=== PATIENT | female | born 1980 | race Caucasian/White ===

== ENCOUNTER 2017-03-30 09:47 | Inpatient (IN) | payer OTHER ==
[2017-03-30] MEDS ORDERED: Sodium Chloride 0.9% 10 ML Syringe FLUSH PRN (11:23)
[2017-03-30] MEDS ORDERED: Oxytocin/Lactated Ringers 10 UNIT/1,000 ML BAG IV SCH ×3 (11:30)
--- NOTE | 2017-03-30 11:43 | PCM.LDHP ---
<Marilyn Tesfaye - Last Filed: 03/30/17 11:38> L&D History of Present Illness - General Date of Service: 03/30/17 Admit Problem/Dx: Admission Diagnosis/Problem Admission Diagnosis/Problem Source of Information: Patient History Limitations: Reports: No Limitations - History of Present Illness Introduction:: Patient is a ([birth year]) who presents to the labor and delivery unit with spontaneous ruptured membranes. The patient believes her water broke at 0800 this morning. 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) : 5 Para: 0 LMP (Approximate): Musculoskeletal History: Reports: Fracture (Right Ankle) Neurological History: Reports: None Endocrine/Metabolic History: Reports: Diabetes, Gestational (Diet controlled) Hematologic History: Reports: None - Infectious Disease History Infectious Disease History: Reports: Chicken Pox (In childhood per record) - Past Surgical History Head Surgeries/Procedures: Reports: None HEENT Surgical History: Reports: Oral Surgery ([place] teeth (age 16)) Cardiovascular Surgical History: Reports: None Respiratory Surgical History: Reports: None GI Surgical History: Reports: None Female Surgical History: Reports: None Other Musculoskeletal Surgeries/Procedures:: Ankle fracture repair Social & Family History - Family History Other Cardiac Family History: Heart Disease- Maternal Grandmother and Maternal Grandfather Hematologic: Reports: Anemia (Patient's cousin is a carrier for RAD51C ([place] Anemia)) Oncologic: Reports: Colon (Father) Other Oncologic Family History: Mother-ureter cancer - Tobacco Use Smoking Status *Q: Never Smoker Tobacco Use Within Last Twelve Months: No - Alcohol Use Alcohol Use History: Yes Alcohol Use Frequency: Socially H&P Review of Systems - Review of Systems: Review Of Systems: ROS reveals no pertinent complaints other than HPI. L&D Exam - Exam Exam: See Below - Vital Signs Weight: 115.394 kg - OB Specific Contraction Intensity: Mild Movement: Active Heart Tones: Present Heart Tones per Min: 136 Presentation: Unable to Assess - Exam General: Alert, Oriented, Cooperative HEENT: Conjunctiva Clear, EACs Clear, EOMI, Hearing Intact, Mucosa Moist & [place] , Nares Patent, Normal Nasal Septum Neck: Supple, Trachea Midline Lungs: Clear to Auscultation, Normal Respiratory Effort Cardiovascular: Regular Rate, Regular Rhythm Rectal Exam: Deferred Genitourinary: Deferred Back Exam: Normal Inspection, Full Range of Motion Extremities: Normal Inspection, Normal Range of Motion, Non-Tender, Normal Capillary Refill, Pedal Edema Skin: Warm, Dry, Intact Psychiatric: Alert, Normal Affect, Normal Mood - Patient Data Lab Results Last 24 hrs: Laboratory Results - last 24 hr 03/30/17 Range/Units 10:33 Membrane Rupture Positive H Assessment/Plan Comment:: Patient is a 36 yo 0-0-4-0 who presents to L & D with spontaneous ruptured membranes. The patient is 39 3/7 weeks with and CAMILO of 04/03/17. She was scheduled to be induced on 03/31/17. Her water broke at 0800 this morning. She is GBS-, A-, antibody negative. She has gestational diabetes that is managed by diet. She had a normal course otherwise. She is no distress, reports movement and is having no contractions or pain. She has some pedal edema +1. Rest of physical exam is unremarkable. The patient has requested and epidural be placed Plan: Continue monitoring Monitor maternal blood sugars <Joaquín Alcocer - Last Filed: 03/31/17 05:38> L&D History of Present Illness - General Admit Problem/Dx: Patient Status Order with Admit Dx/Problem 03/30/17 11:23 Patient Status [ADT] Routine Admission Diagnosis/Problem Admission Diagnosis/Problem L&D Exam - Vital Signs Vital Signs: Last Vital Signs Temp 36.3 C 03/30/17 19:39 Pulse 83 03/30/17 19:39 Resp 20 03/30/17 19:39 BP 116/76 03/30/17 19:39 Pulse Ox 98 03/30/17 19:39 - Patient Data Lab Results Last 24 hrs: Laboratory Results - last 24 hr 03/30/17 03/30/17 03/30/17 Range/Units 10:33 12:40 12:40 WBC 11.84 H (3.98-10.04) K/mm3 RBC 4.04 (3.98-5.22) M/mm3 Hgb 12.5 (11.2-15.7) gm/L Hct 36.5 (34.1-44.9) % MCV 90.3 (79.4-94.8) fl MCH 30.9 (25.6-32.2) pg MCHC 34.2 (32.2-35.5) g/dl RDW Std Deviation 43.8 (36.4-46.3) fL Plt Count 87 L (182-369) K/mm3 MPV 10.9 (9.4-12.3) fl Neut % (Auto) 81.8 H (34.0-71.1) % Lymph % (Auto) 12.4 L (19.3-51.7) % [place] % (Auto) 5.1 (4.7-12.5) % Eos % (Auto) 0.3 L (0.7-5.8) Baso % (Auto) 0.2 (0.1-1.2) % Neut # (Auto) 9.69 H (1.56-6.13) K/mm3 Lymph # (Auto) 1.47 (1.18-3.74) K/mm3 [place] # (Auto) 0.60 H (0.24-0.36) K/mm3 Eos # (Auto) 0.04 (0.04-0.36) K/mm3 Baso # (Auto) 0.02 (0.01-0.08) K/mm3 Manual Slide Review Abnormal smear Glucose 70 L (74-106) mg/dL Membrane Rupture Positive H 03/30/17 Range/Units 16:00 WBC (3.98-10.04) K/mm3 RBC (3.98-5.22) M/mm3 Hgb (11.2-15.7) gm/L Hct (34.1-44.9) % MCV (79.4-94.8) fl MCH (25.6-32.2) pg MCHC (32.2-35.5) g/dl RDW Std Deviation (36.4-46.3) fL Plt Count 172 L (182-369) K/mm3 MPV (9.4-12.3) fl Neut % (Auto) (34.0-71.1) % Lymph % (Auto) (19.3-51.7) % [place] % (Auto) (4.7-12.5) % Eos % (Auto) (0.7-5.8) Baso % (Auto) (0.1-1.2) % Neut # (Auto) (1.56-6.13) K/mm3 Lymph # (Auto) (1.18-3.74) K/mm3 [place] # (Auto) (0.24-0.36) K/mm3 Eos # (Auto) (0.04-0.36) K/mm3 Baso # (Auto) (0.01-0.08) K/mm3 Manual Slide Review Glucose (74-106) mg/dL Membrane Rupture Result Diagrams: 03/30/17 16:00 Problem List Initiated/Reviewed/Updated: Yes Orders Last 24hrs: Active Orders 24 hr Category Date Time Status Patient Status [ADT] Routine ADT 03/30/17 11:23 Active Antiembolic Devices [RC] Care 03/30/17 21:21 Active Communication Order [RC] ASDIRECTED Care 03/30/17 11:23 Active Insert Gupta Catheter [Insert Urinary Catheter] [OM.PC] Care 03/30/17 21:30 Ordered Q24H Notify Provider [RC] ASDIRECTED Care 03/30/17 18:54 Active Notify Provider [RC] PRN Care 03/30/17 11:23 Active Peripheral IV Care [RC] Care 03/30/17 11:24 Active Urinary Catheter Assessment [RC] Care 03/30/17 21:26 Active Vital Signs [RC] Care 03/30/17 11:23 Active Regular Diet [DIET] Diet 03/30/17 Lunch Active Bupivacaine/fentaNYL/NS [fentaNYL/Bupivacaine/NS 2 MCG- Med 03/30/17 19:00 Active 0.125% 100 ML] 100 ml EPIDUR ASDIRECTED Lactated Ringers [Ringers, Lactated] 1,000 ml Med 03/30/17 11:30 Active IV ASDIRECTED Ondansetron [Zofran] Med 03/30/17 18:54 Active 4 mg IVPUSH ONETIME PRN Oxytocin [Pitocin] 20 unit Med 03/30/17 21:45 Active Lactated Ringers [Ringers, Lactated] 1,000 ml IV TITRATE Oxytocin/Lactated Ringers [Pitocin in LR 10 Units/1,000 Med 03/30/17 11:30 Active ML] 10 unit in 1,000 ml IV .CONTINUOUS Oxytocin/Lactated Ringers [Pitocin in LR 10 Units/1,000 Med 03/30/17 11:30 Active ML] 10 unit in 1,000 ml IV .CONTINUOUS Oxytocin/Lactated Ringers [Pitocin in LR 10 Units/1,000 Med 03/30/17 11:30 Active ML] 10 unit in 1,000 ml IV TITRATE Sodium Chloride 0.9% [Saline Flush] Med 03/30/17 11:23 Active 10 ml FLUSH ASDIRECTED PRN ePHEDrine [ePHEDrine Sulfate] Med 03/30/17 18:54 Active 5 mg IVPUSH ASDIRECTED PRN fentaNYL [Sublimaze] Med 03/30/17 18:54 Active 100 mcg EPIDUR Q3H PRN Electronic Heart Tones Ext w TOCO [WOMSER] Oth 03/30/17 11:23 Ordered Routine Electronic Heart Tones Internal [WOMSER] Per Unit Oth 03/30/17 11:23 Ordered Routine Peripheral IV Insertion Adult [OM.PC] Routine Oth 03/30/17 11:23 Ordered SCD [Sequential Compression Device] [OM.PC] Routine Oth 03/30/17 21:21 Ordered Resuscitation Status Routine Resus Stat 03/30/17 11:23 Ordered Medication Orders Ephedrine Sulfate (Ephedrine Sulfate) 5 mg IVPUSH ASDIRECTED PRN PRN Reason: Hypotension Last Admin: 03/30/17 22:33 Dose: 5 mg Admin: 03/30/17 22:11 Dose: 5 mg Fentanyl (Sublimaze) 100 mcg EPIDUR Q3H PRN PRN Reason: Pain Last Admin: 03/30/17 19:40 Dose: 100 mcg Fentanyl/Bupivacaine HCl (Fentanyl/Bupivacaine/Ns 2 Mcg-0.125% 100 Ml) 100 ml EPIDUR ASDIRECTED BELÉN Last Admin: 03/31/17 02:54 Dose: 100 ml Admin: 03/30/17 19:40 Dose: 100 ml Lactated Ringer's (Ringers, Lactated) 1,000 mls @ 100 mls/hr IV ASDIRECTED BELÉN Last Admin: 03/30/17 23:03 Dose: 125 mls/hr Infusion: 03/30/17 23:03 Dose: 125 mls/hr Admin: 03/30/17 21:10 Dose: 125 mls/hr Infusion: 03/30/17 20:35 Dose: 999 mls/hr Admin: 03/30/17 19:34 Dose: 999 mls/hr Infusion: 03/30/17 19:34 Dose: 100 mls/hr Admin: 03/30/17 14:16 Dose: 100 mls/hr Oxytocin/Lactated Ringer's (Pitocin In Lr 10 Units/1,000 Ml) 10 unit in 1,000 mls @ 12 mls/hr IV TITRATE BELÉN; 2 MUNITS/MIN PRN Reason: Protocol Last Titration: 03/30/17 22:32 Dose: 20 munits/min, 120 mls/hr Titration: 03/30/17 21:47 Dose: 18 munits/min, 108 mls/hr Titration: 03/30/17 21:10 Dose: 16 munits/min, 96 mls/hr Titration: 03/30/17 20:02 Dose: 14 munits/min, 84 mls/hr Titration: 03/30/17 19:34 Dose: 0 munits/min, 0 mls/hr Titration: 03/30/17 18:10 Dose: 14 munits/min, 84 mls/hr Titration: 03/30/17 17:25 Dose: 12 munits/min, 72 mls/hr Titration: 03/30/17 16:43 Dose: 10 munits/min, 60 mls/hr Titration: 03/30/17 16:12 Dose: 8 munits/min, 48 mls/hr Titration: 03/30/17 15:40 Dose: 6 munits/min, 36 mls/hr Titration: 03/30/17 14:50 Dose: 4 munits/min, 24 mls/hr Admin: 03/30/17 14:18 Dose: 2 munits/min, 12 mls/hr Oxytocin/Lactated Ringer's (Pitocin In Lr 10 Units/1,000 Ml) 10 unit in 1,000 mls @ 100 mls/hr IV .CONTINUOUS BELÉN Oxytocin/Lactated Ringer's (Pitocin In Lr 10 Units/1,000 Ml) 10 unit in 1,000 mls @ 500 mls/hr IV .CONTINUOUS BELÉN Oxytocin 20 unit/ Lactated (Ringer's) 1,002 mls @ 60.12 mls/hr IV TITRATE BELÉN; 20 MUNITS/MIN PRN Reason: Protocol Last Admin: 03/31/17 02:21 Dose: 20 munits/min, 60.12 mls/hr Ondansetron HCl (Zofran) 4 mg IVPUSH ONETIME PRN PRN Reason: Nausea/Vomiting Sodium Chloride (Saline Flush) 10 ml FLUSH ASDIRECTED PRN PRN Reason: Keep Vein Open Assessment/Plan Comment:: Plan: 1. Anticipate delivery 2. Pitocin augmentation if not laboring adequately by 6-8 hours post SROM 3. CBC 4. Pt desires epidural 5. Rh negative. Rh immunoglobulin as indicated pp. 6. Support nursing decision
[2017-03-30] MEDS ORDERED: Bupivacaine 0.25% 10 ML SDV ONE (12:00)
[2017-03-30] MEDS: Lactated Ringers 1,000 ML IV SCH ×4 (14:16→23:03)
[2017-03-30] MEDS ORDERED: fentaNYL 100 MCG/2 ML SDV EPIDUR PRN (18:54)
[2017-03-30] MEDS ORDERED: Ondansetron 4 MG/2 ML SDV IVPUSH PRN (18:54)
--- NOTE | 2017-03-30 18:56 | PCM.PREANE ---
Preanesthetic Assessment - Anesthesia/Transfusion/Family Hx Anesthesia History: Prior Anesthesia Without Reaction Family History of Anesthesia Reaction: No Transfusion History: No Prior Transfusion(s) Intubation History: Unknown - Review of Systems General: No Symptoms Pulmonary: No Symptoms Cardiovascular: No Symptoms Gastrointestinal: Diarrhea Neurological: No Symptoms Other: Reports: None, Diabetes (gestational DM diet controlled) - Physical Assessment NPO Status Date: 03/30/17 NPO Status Time: 13:00 Pulse: 83 O2 Sat by Pulse Oximetry: 98 Respiratory Rate: 20 Blood Pressure: 116/76 Temperature: 36.3 C Vital Signs: Last Vital Signs Temp 36.3 C 03/30/17 10:33 Pulse 83 03/30/17 10:33 Resp 20 03/30/17 10:33 BP 116/76 03/30/17 10:33 Pulse Ox 98 03/30/17 10:33 Height: 1.68 m Weight: 115.394 kg ASA Class: 2 Mental Status: Alert & Oriented x3 Airway Class: Mallampati = 2 Dentition: Reports: Normal Dentition, Caries Thyro-Mental Finger Breadths: 3 Mouth Opening Finger Breadths: 3 ROM/Head Extension: Full Lungs: Clear to Auscultation, Normal Respiratory Effort Cardiovascular: Regular Rate, Regular Rhythm, No Murmurs - Lab Values: Laboratory Last Values WBC 11.84 K/mm3 (3.98-10.04) H 03/30/17 12:40 RBC 4.04 M/mm3 (3.98-5.22) 03/30/17 12:40 Hgb 12.5 gm/L (11.2-15.7) 03/30/17 12:40 Hct 36.5 % (34.1-44.9) 03/30/17 12:40 MCV 90.3 fl (79.4-94.8) 03/30/17 12:40 MCH 30.9 pg (25.6-32.2) 03/30/17 12:40 MCHC 34.2 g/dl (32.2-35.5) 03/30/17 12:40 RDW Std Deviation 43.8 fL (36.4-46.3) 03/30/17 12:40 Plt Count 172 K/mm3 (182-369) L 03/30/17 16:00 MPV 10.9 fl (9.4-12.3) 03/30/17 12:40 Neut % (Auto) 81.8 % (34.0-71.1) H 03/30/17 12:40 Lymph % (Auto) 12.4 % (19.3-51.7) L 03/30/17 12:40 [place] % (Auto) 5.1 % (4.7-12.5) 03/30/17 12:40 Eos % (Auto) 0.3 (0.7-5.8) L 03/30/17 12:40 Baso % (Auto) 0.2 % (0.1-1.2) 03/30/17 12:40 Neut # (Auto) 9.69 K/mm3 (1.56-6.13) H 03/30/17 12:40 Lymph # (Auto) 1.47 K/mm3 (1.18-3.74) 03/30/17 12:40 [place] # (Auto) 0.60 K/mm3 (0.24-0.36) H 03/30/17 12:40 Eos # (Auto) 0.04 K/mm3 (0.04-0.36) 03/30/17 12:40 Baso # (Auto) 0.02 K/mm3 (0.01-0.08) 03/30/17 12:40 Manual Slide Review Abnormal smear 03/30/17 12:40 Glucose 70 mg/dL (74-106) L 03/30/17 12:40 Membrane Rupture Positive H 03/30/17 10:33 Above labs reviewed and noted. - Allergies Allergies/Adverse Reactions: Allergies Allergy/AdvReac Type Severity Reaction Status Date / Time No Known Allergies Allergy Verified 03/30/17 10:33 - Anesthesia Plan Pre-Op Medication Ordered: None - Acknowledgements Anesthesia Type Planned: Epidural Pt an Appropriate Candidate for the Planned Anesthesia: Yes Alternatives and Risks of Anesthesia Discussed w Pt/Guardian: Yes Pt/Guardian Understands and Agrees with Anesthesia Plan: Yes PreAnesthesia Questionnaire HEENT History: Reports: None Cardiovascular History: Reports: None Respiratory History: Reports: None Gastrointestinal History: Reports: None Genitourinary History: Reports: None 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: , 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) Musculoskeletal History: Reports: Fracture (Right Ankle) Neurological History: Reports: None Endocrine/Metabolic History: Reports: Diabetes, Gestational (Diet controlled) Hematologic History: Reports: None - Infectious Disease History Infectious Disease History: Reports: Chicken Pox (In childhood per record) - Past Surgical History Head Surgeries/Procedures: Reports: None HEENT Surgical History: Reports: Oral Surgery ([place] teeth (age 16)) Cardiovascular Surgical History: Reports: None Respiratory Surgical History: Reports: None GI Surgical History: Reports: None Female Surgical History: Reports: None Other Musculoskeletal Surgeries/Procedures:: Ankle fracture repair - SUBSTANCE USE Smoking Status *Q: Never Smoker Tobacco Use Within Last Twelve Months: No Recreational Drug Use History: No - CURRENT (IN HOUSE) MEDS Current Meds: Current Medications Lactated Ringer's (Ringers, Lactated) 1,000 mls @ 100 mls/hr IV ASDIRECTED BELÉN Last Admin: 03/30/17 14:16 Dose: 100 mls/hr Oxytocin/Lactated Ringer's (Pitocin In Lr 10 Units/1,000 Ml) 10 unit in 1,000 mls @ 12 mls/hr IV TITRATE BELÉN; 2 MUNITS/MIN PRN Reason: Protocol Last Titration: 03/30/17 18:10 Dose: 14 munits/min, 84 mls/hr Oxytocin/Lactated Ringer's (Pitocin In Lr 10 Units/1,000 Ml) 10 unit in 1,000 mls @ 100 mls/hr IV .CONTINUOUS BELÉN Oxytocin/Lactated Ringer's (Pitocin In Lr 10 Units/1,000 Ml) 10 unit in 1,000 mls @ 500 mls/hr IV .CONTINUOUS BELÉN Sodium Chloride (Saline Flush) 10 ml FLUSH ASDIRECTED PRN PRN Reason: Keep Vein Open
[2017-03-30] MEDS: Bupivacaine/fentaNYL/NS 100 ML Bag EPIDUR SCH (19:40)
[2017-03-30] MEDS ORDERED: Sodium Chloride 0.9% 10 ML ONE (22:04)
[2017-03-30] MEDS: ePHEDrine 50 MG/ML SDV IVPUSH PRN ×2 (22:11→22:33)
[2017-03-31] MEDS: Bupivacaine/fentaNYL/NS 100 ML Bag EPIDUR SCH (02:54)
--- NOTE | 2017-03-31 11:35 | PCM.SN ---
- Free Text/Narrative Note: Delivery note: Alaina is a 1 now para 1001 white female was admitted on the a.m. of at 39-4/7 weeks gestational age with spontaneous rupture of membranes. She was monitored for approximately 6 hours after which Pitocin augmentation was started in her facilitate delivery by 24 hours post-rupture membranes. Patient slowly but steadily progressed to complete cervical dilation by approximately 0645 hrs. on 03/31/2017. She then went on to deliver a viable 8 lbs. 12 oz. (3970) male with Apgars of 7 and 8, a length of 22 inches at 0830 hrs. on 03/31/2017. She delivered in an occiput anterior position over a second-degree laceration. Nose and mouth were bulb suctioned was placed on mom' s abdomen. Cord was clamped 2 and cut by the father. Cord blood is obtained. The secondary laceration was closed in a routine fashion using 3-0 Monocryl suture. IV Pitocin was started after delivery of the baby to facilitate uterine tone and decrease likelihood of bleeding. Patient had had an epidural placed in the labor and this was adequate for the repair of the perineal laceration. Since delivered intact in a Cruz presentation. It had a three-vessel cord. It was discarded per patient desire. Assessment loss was 100 mL. Patient plans to breast-feed. Condition: Good
[2017-03-31] MEDS ORDERED: Docusate Sodium 100 MG Cap PO PRN (12:01)
[2017-03-31] MEDS ORDERED: Witch Hazel Medicated Pads 100/Jar TOP PRN (12:01)
[2017-03-31] MEDS ORDERED: Acetaminophen 325 MG Tab PO PRN (12:01)
[2017-03-31] MEDS ORDERED: Lanolin 100% Cream 7 GM Tube TOP PRN (12:01)
[2017-03-31] MEDS ORDERED: Benzocaine/Menthol 20%-0.5% Spray 56 GM Canister TOP PRN (12:01)
[2017-03-31] MEDS: Ibuprofen 600 MG Tab PO PRN (15:19)
--- NOTE | 2017-04-01 00:46 | PCM48HPAN ---
Post Anesthesia Note - EVALUATION WITHIN 48HRS OF ANESTHETIC Vital Signs in Normal Range: Yes Patient Participated in Evaluation: Yes Respiratory Function Stable: Yes Airway Patent: Yes Cardiovascular Function Stable: Yes Hydration Status Stable: Yes Pain Control Satisfactory: Yes Nausea and Vomiting Control Satisfactory: Yes Mental Status Recovered: Yes
[2017-04-01] MEDS: Ibuprofen 600 MG Tab PO PRN (06:03)
--- NOTE | 2017-04-01 11:31 | PCM.DCSUM1 ---
Discharge Summary - Hospital Course Free Text/Narrative:: Alaina is a 1 now para 1001 white female was admitted on the a.m. of at 39-4/7 weeks gestational age with spontaneous rupture of membranes. She was monitored for approximately 6 hours after which Pitocin augmentation was started in her facilitate delivery by 24 hours post-rupture membranes. Patient slowly but steadily progressed to complete cervical dilation by approximately 0645 hrs. on 03/31/2017. She then went on to deliver a viable 8 lbs. 12 oz. (3970) male infant with Apgars of 7 and 8, a length of 22 inches at 0830 hrs. on 03/31/2017. She delivered in an occiput anterior position over a second-degree laceration. Nose and mouth were bulb suctioned was placed on mom' s abdomen. Cord was clamped 2 and cut by the father. Cord blood is obtained. The secondary laceration was closed in a routine fashion using 3-0 Monocryl suture. IV Pitocin was started after delivery of the baby to facilitate uterine tone and decrease likelihood of bleeding. Patient had had an epidural placed in the labor and this was adequate for the repair of the perineal laceration. Since delivered intact in a Cruz presentation. It had a three-vessel cord. It was discarded per patient desire. Assessment loss was 100 mL. Patient plans to breast-feed. patient is done very well. She is anxious to go home. She is nursing without problems along her milk supply has not come in. She has minimal lochia, is voiding well. Is afebrile and vital signs been stable. She is desiring to be discharged. - Discharge Data Discharge Date: 04/01/17 Discharge Disposition: Home, Self-Care 01 Condition: Good - Patient Instructions Diet: Regular Diet as Tolerated (Nursing diet with increased calories and calcium as recommended) Activity: As Tolerated (No intercourse or tampons until bleeding resolves) Driving: May Drive Today Showering/Bathing: May Shower (May take a bath) Notify Provider of: Fever, Increased Pain, Swelling and Redness, Drainage, Nausea and/or Vomiting - Discharge Plan Home Medications: Home Meds Ibuprofen [IJD: Ibuprofen] 600 mg PO Q4H PRN tablet 04/01/17 [Rx] Referrals: Jessica Mo MD [Primary Care Provider] - (Return to clinic-Dr. Mo-6 weeks.) - Discharge Summary/Plan Comment DC Time >30 min.: No Discharge Summary/Plan Comment: Discharge instructions: 1. Discharge home 2. Diet, activity and follow-up discussed with patient. Recommend nursing diet with increased calories and calcium. 3. Precautions given concern increased pain, bleeding, temperature, signs/ symptoms of DVT/PE. 4. Medications per home medication was printed, discussed with and given to the patient. 5. Return to clinic-Dr. Mo in 6 weeks. Diagnosis: Term -delivered Condition: Good - Patient Data Vitals - Most Recent: Last Vital Signs Temp 36.9 C 04/01/17 04:25 Pulse 61 04/01/17 04:25 Resp 16 04/01/17 04:25 BP 112/55 L 04/01/17 04:25 Pulse Ox 97 04/01/17 04:25 Weight - Most Recent: 115.394 kg Lab Results - Last 24 hrs: Laboratory Results - last 24 hr 04/01/17 Range/Units 06:35 WBC 11.80 H (3.98-10.04) K/mm3 RBC 3.37 L (3.98-5.22) M/mm3 Hgb 10.3 L (11.2-15.7) gm/L Hct 31.0 L (34.1-44.9) % MCV 92.0 (79.4-94.8) fl MCH 30.6 (25.6-32.2) pg MCHC 33.2 (32.2-35.5) g/dl RDW Std Deviation 44.8 (36.4-46.3) fL Plt Count 115 L (182-369) K/mm3 MPV 11.1 (9.4-12.3) fl Med Orders - Current: Current Medications Acetaminophen (Tylenol) 650 mg PO Q4H PRN PRN Reason: mild pain or fever Benzocaine/Menthol (Dermoplast Pain Relief [place]) 0 gm TOP ASDIRECTED PRN PRN Reason: Perineal Comfort Measure Docusate Sodium (Colace) 100 mg PO BID PRN PRN Reason: Constipation Last Admin: 04/01/17 09:42 Dose: 100 mg Emollient Ointment (Lansinoh Hpa) 0 gm TOP ASDIRECTED PRN PRN Reason: Sore Nipples Ibuprofen (Motrin) 600 mg PO Q4H PRN PRN Reason: Mild pain or fever Last Admin: 04/01/17 06:03 Dose: 600 mg Witch Desirae (Tucks) 1 pad TOP ASDIRECTED PRN PRN Reason: Hemorrhoid pain Discontinued Medications Bupivacaine HCl (Sensorcaine-Mpf 0.25%) 10 ml .ROUTE .STK-MED ONE Stop: 03/30/17 12:01 Ephedrine Sulfate (Ephedrine Sulfate) 5 mg IVPUSH ASDIRECTED PRN PRN Reason: Hypotension Last Admin: 03/30/17 22:33 Dose: 5 mg Fentanyl (Sublimaze) 100 mcg EPIDUR Q3H PRN PRN Reason: Pain Last Admin: 03/30/17 19:40 Dose: 100 mcg Fentanyl/Bupivacaine HCl (Fentanyl/Bupivacaine/Ns 2 Mcg-0.125% 100 Ml) 100 ml EPIDUR ASDIRECTED BELÉN Last Admin: 03/31/17 02:54 Dose: 100 ml Lactated Ringer's (Ringers, Lactated) 1,000 mls @ 100 mls/hr IV ASDIRECTED BELÉN Last Admin: 03/30/17 23:03 Dose: 125 mls/hr Oxytocin/Lactated Ringer's (Pitocin In Lr 10 Units/1,000 Ml) 10 unit in 1,000 mls @ 12 mls/hr IV TITRATE BELÉN; 2 MUNITS/MIN PRN Reason: Protocol Last Titration: 03/30/17 22:32 Dose: 20 munits/min, 120 mls/hr Oxytocin/Lactated Ringer's (Pitocin In Lr 10 Units/1,000 Ml) 10 unit in 1,000 mls @ 100 mls/hr IV .CONTINUOUS BELÉN Oxytocin/Lactated Ringer's (Pitocin In Lr 10 Units/1,000 Ml) 10 unit in 1,000 mls @ 500 mls/hr IV .CONTINUOUS BELÉN Oxytocin 20 unit/ Lactated (Ringer's) 1,002 mls @ 60.12 mls/hr IV TITRATE BELÉN; 20 MUNITS/MIN PRN Reason: Protocol Last Admin: 03/31/17 02:21 Dose: 20 munits/min, 60.12 mls/hr Sodium Chloride (Normal Saline) Confirm Administered Dose 10 mls @ as directed .ROUTE .STK-MED ONE Stop: 03/30/17 22:05 Last Admin: 03/30/17 22:32 Dose: Not Given Ondansetron HCl (Zofran) 4 mg IVPUSH ONETIME PRN PRN Reason: Nausea/Vomiting Sodium Chloride (Saline Flush) 10 ml FLUSH ASDIRECTED PRN PRN Reason: Keep Vein Open *Q Meaningful Use (DIS) - VTE *Q VTE Criteria *Q: - Stroke *Q Stroke Criteria *Q: - AMI *Q AMI Criteria *Q:
== END 2017-04-01 15:07 | disposition home or self-care (01) | DRG 775 ==
LOC: JD.OB 09:47 → JD.OBCHECK 09:47 → JD.OB 11:23 → OBSVTOIN 03-31 08:30 → JD.OB 03-31 08:30
PROVIDERS: ADMIT Obstetrics & Gynecology; ATTEND Obstetrics & Gynecology
PROC: 10E0XZZ Delivery of Products of Conception, External Approach (ICD-10-PCS; principal; 2017-03-31)
PROC: 0KQM0ZZ Repair Perineum Muscle, Open Approach (ICD-10-PCS; 2017-03-31)
PROC: 00HU33Z Insertion of Infusion Device into Spinal Canal, Percutaneous Approach (ICD-10-PCS; 2017-03-31)
PROC: 3E0R3BZ Introduction of Anesthetic Agent into Spinal Canal, Percutaneous Approach (ICD-10-PCS; 2017-03-31)
DX: O42.92 Full-term premature rupture of membranes, unspecified as to length of time between rupture and onset of labor (principal); O24.420 Gestational diabetes mellitus in childbirth, diet controlled; O70.1 Second degree perineal laceration during delivery; Z3A.40 40 weeks gestation of pregnancy; Z37.0 Single live birth
CPT/HCPCS: 01967; 36415; 51702; 59300; 59409; 82947; 84112; 85025; 85027; 85049; A9270-GY; J2590; J3010; J7120